=== PATIENT | male | born 1960 | race American Indian/Alaskan Native ===

== ENCOUNTER 2019-03-12 06:03 | Day surgery (SDC) | payer BC ==
[~2019-03-12 06:03] MED LIST: BACTERIOSTATIC SODIUM CHLORIDE 0.9% 30 ML VIAL INFILTRATI ONE; LACTATED RINGERS 1,000 ML IV SCH; MIDAZOLAM 2 MG/2 ML INJ IV NR
[2019-03-12] MEDS ORDERED: fentaNYL 100 MCG/2 ML INJ IV PRN (07:00)
[2019-03-12] MEDS ORDERED: ONDANSETRON 4 MG/2 ML INJ IV PRN (07:00)
--- NOTE | 2019-03-12 07:01 | Anesthesia Day of Surgery ---
Anesthesia Day of Surgery - Day of Surgery Patient Examined: Yes Patient H&P Reviewed: Yes Patient is NPO: Yes
--- NOTE | 2019-03-12 07:05 | Anesthesia Consultation ---
Anesthesia Consult and Med Hx Date of service: 03/12/19 - Airway Anesthetic Teeth Evaluation: Chipped ROM Head & Neck: Adequate Mental/Hyoid Distance: Adequate Mallampati Class: Class II Intubation Access Assessment: Good - Pre-Operative Health Status ASA Pre-Surgery Classification: ASA2 Proposed Anesthetic Plan: MAC (MAC; GA if needed) - Pulmonary Hx Smoking: Yes (Former) - Cardiovascular System Hx Hypertension: Yes - Gastrointestinal Hx Gastroesophageal Reflux Disease: No - Endocrine Hx Renal Disease: Yes (STAGE 3) Hx Liver Disease: Yes (Hepatitis C) Hx Non-Insulin Dependent Diabetes: Yes (PRE) - Additional Comments Anesthesia Medical History Comments: NO BLOOD PRODUCTS. +Medical clearance
[2019-03-12] MEDS ORDERED: LIDOCAINE (1%) 10 MG/1 ML VIAL 20 ML MDV ONE (07:12)
[2019-03-12] MEDS ORDERED: BUPIVACAINE/PF (0.25%) 2.5 MG/ML 30 ML VIAL INFILTRATI ONE ×2 (07:12→08:12)
[2019-03-12] MEDS ORDERED: BUPIVACAINE-EPINEPHRINE/PF 0.25%-1:200,000 (30 ML) VIAL INFILTRATI ONE (07:12)
[2019-03-12] MEDS ORDERED: ceFAZolin/STERILE WATER 2 GM/20 ML SYRINGE IV NR (07:13)
[2019-03-12] MEDS ORDERED: LIDOCAINE MPF (2%) 20 MG/1 ML VIAL 5 ML ONE (07:33)
[2019-03-12] MEDS ORDERED: MIDAZOLAM 2 MG/2 ML INJ ONE (07:33)
[2019-03-12] MEDS ORDERED: fentaNYL 100 MCG/2 ML INJ ONE (07:33)
[2019-03-12] MEDS ORDERED: PROPOFOL 200 MG/20 ML VIAL IV ONE (07:34)
[2019-03-12] MEDS ORDERED: KETAMINE 500 MG/5 ML VIAL MDV ONE (07:35)
[2019-03-12] MEDS ORDERED: SODIUM CHLORIDE 0.9% IRR 1,500 ML BOTTLE IR ONE (08:12)
[2019-03-12] MEDS ORDERED: LIDOCAINE (1%) 10 MG/1 ML VIAL 20 ML MDV INFILTRATI ONE (08:12)
[2019-03-12] MEDS ORDERED: ONDANSETRON 4 MG/2 ML INJ ONE (08:47)
[2019-03-12] MEDS ORDERED: KETOROLAC 30 MG/1 ML INJ ONE (08:47)
[2019-03-12] MEDS ORDERED: dexAMETHasone 20 MG/5 ML VIAL ONE (09:00)
--- NOTE | 2019-03-12 09:15 | Short Stay Summary ---
Short Stay Documentation Date of service: 03/12/19 - History Principal diagnosis: soft tissue mass back H&P: obtained from office - Allergies and Medications Current Medications: Allergies No Known Allergies Allergy (Unverified 03/11/19 12:30) Home Medications Medication Instructions Recorded Confirmed Last Taken Type amLODIPine [Norvasc] 10 mg PO DAILY 03/11/19 03/12/19 03/11/19 History Active Medications Cefazolin Sodium (Ancef/Sterile Water 2 Gm/20 Ml) 2 gm IV PREOP NR Stop: 03/12/19 13:00 Fentanyl (Sublimaze) 50 mcg IV Q5MIN PRN PRN Reason: Pain , Severe (7-10) Stop: 03/12/19 23:00 Lactated Ringer's (Lactated Ringers) 1,000 mls @ 100 mls/hr IV DIRECT MERYL Last Admin: 03/12/19 06:40 Dose: 100 mls/hr Documented by: Midazolam HCl (Versed) 2 mg IV PREOP NR Stop: 03/12/19 23:01 Last Admin: 03/12/19 07:09 Dose: 2 mg Documented by: Ondansetron HCl (Zofran) 4 mg IV ONCE PRN PRN Reason: Nausea And Vomiting Stop: 03/12/19 13:00 - Brief post op/procedure progress note Date of procedure: 03/12/19 Pre-op diagnosis: soft tissue mass back Post-op diagnosis: same Procedure: excision soft tissue mass back with complex closure Anesthesia: GETA, local Findings: 8 cm soft tissue mass back - lipoma with chronic inflammation Surgeon: LUTHER HASSAN Estimated blood loss: minimal Pathology: list (soft tissue mass back) Specimen disposition: to lab Condition: stable - Hospital course Hospital course: Pt observed in PACU and discharged to home in stable condition when criteria met - Disposition Condition at discharge: Good Disposition: DC- TO HOME OR SELFCARE Short Stay Discharge Plan Activity: other (no driving if taking prescription pain medication) Diet: regular Wound: open to air, per your surgeon's advice Additional Instructions: SEE PRINTED DISCHARGE INSTRUCTIONS Follow up with: BRUCE DARLING MD [Primary Care Provider] - 7 Days LUTHER HASSAN DO [Staff Physician] - 14 Days Forms: Work/School Release Form Prescriptions: Ibuprofen [Motrin 800 MG tab] 800 mg PO Q8HR PRN #30 tablet PRN Reason: Pain, Moderate (4-6) HYDROcodone/APAP 5-325 [[place]ster 5/325] 1 each PO Q4HR PRN #10 tablet PRN Reason: Pain , Severe (7-10)
[2019-03-12 09:51] VITALS: BP 131/87
--- NOTE | 2019-03-12 22:02 | Post Anesthesia Evaluation ---
- Post Anesthesia Evaluation Patient Participated: Yes Airway Patent: Yes Stable Respiratory Function: Yes Nausea/Vomiting: No Temp > 96.8F: Yes Pain Manageable: Yes Adequeate Hydration: Yes Anesthesia Complications: No Block Receding Appropriately: Not Applicable Patient on Ventilator: No
--- NOTE | 2019-03-18 09:09 | Operative Report ---
PREOPERATIVE DIAGNOSIS: Soft tissue mass, back. POSTOPERATIVE DIAGNOSIS: Soft tissue mass, back. PROCEDURE: Excision of soft tissue mass back with complex closure. ANESTHESIA: General endotracheal anesthesia, local. FINDINGS: 8 cm soft tissue mass of the back consistent with lipoma with chronic inflammation. SURGEON: Tasia Vitale DO ESTIMATED BLOOD LOSS: Minimal. PATHOLOGY: Soft tissue mass, back. SPECIMEN DISPOSITION: To lab. CONDITION ON DISCHARGE: The patient is stable to PACU. HISTORY OF PRESENT ILLNESS AND INDICATION: The patient is a 58-year-old male, who was seen in the surgery clinic for a progressively enlarging soft tissue mass of his back. The patient stated it was causing him more discomfort due to the tenseness of his skin and the size of the mass and therefore, it was recommended that the mass be removed. All risks, benefits and alternatives to surgery were discussed with the patient. Questions answered. Consent was obtained. PROCEDURE IN DETAIL: The patient was identified in the preoperative area and taken back to the operating room and placed on the operating table in supine position. After anesthesia was induced, the patient was placed in right lateral decubitus position and the back was prepped and draped in the usual sterile fashion and timeout performed. Local anesthetic was infiltrated into skin and subcutaneous tissue at the intended incision site. An 8 cm horizontal incision was made at the center of the mass using a 15 blade and dissection carried down through skin and subcutaneous tissue using Bovie electrocautery. Once the mass was encountered, it was circumferentially dissected free from surrounding tissue and any dense adhesions were transected using a Bovie electrocautery. The deep margin of the mass was just superior to the muscle fascia. The muscle was displaced due to the mass but fascia intact. Once the mass was circumferentially dissected, it was removed from the wound and measured at 8 cm. It was lobulated with some firm areas. The superficial margin was marked with a short stitch and the cephalad margin marked with a long stitch. The specimen was then passed off the table. The wound was irrigated copiously with saline. Hemostasis was carefully ensured with a combination of electrocautery, pressure. Once hemostasis was ensured, Alex powder was sprayed into the wound to further ensure hemostasis. Wound was then closed in a layered fashion. The deep layer was closed with interrupted 3-0 Vicryl suture. The deep dermal layer was closed with 3-0 Vicryl interrupted suture. The skin was closed with 4-0 Monocryl subcuticular running stitch and skin glue. Once the glue was dry, 4 x 4 gauze and Elastoplast tape was applied over the incision. At the end of the case, all sponge, instrument, sharp counts were correct x 2. The patient was awoken from anesthesia, extubated, and taken to PACU in stable condition. JOB# [id number] SAPNA/MAGAN NAYAK
== END 2019-03-12 10:30 | disposition home or self-care (01) ==
LOC: OR 06:03
PROVIDERS: ATTEND Surgery
DX: M79.9 Soft tissue disorder, unspecified (principal); I12.9 Hypertensive chronic kidney disease with stage 1 through stage 4 chronic kidney disease, or unspecified chronic kidney disease; E11.22 Type 2 diabetes mellitus with diabetic chronic kidney disease; N18.3 Chronic kidney disease, stage 3 (moderate); E78.00 Pure hypercholesterolemia, unspecified; B18.2 Chronic viral hepatitis C; Z87.891 Personal history of nicotine dependence; Z79.899 Other long term (current) drug therapy; Z98.890 Other specified postprocedural states
CPT/HCPCS: 11406; 12034; 82962; 88307; 88341; 88342; J0690; J1100; J1885; J2250; J2405; J2704; J3010; J7120; 88304